=== PATIENT | male | born 1945 | race Caucasian/White ===

== ENCOUNTER 2021-02-06 23:52 | Emergency (ER) | payer BC ==
[~2021-02-06] VITALS: Ht 182.9 cm; Wt 113.6 kg
[2021-02-07] MEDS ORDERED: HYDROcodone/acetaminophen 5mg/325mg tablet PO ONE (00:05)
[2021-02-07] MEDS ORDERED: HYDR-3965 PO (00:24)
--- NOTE | 2021-02-07 01:00 | NUR ---
to bedside from lobby. updated on treatment/diagnostics performed. requested MRI, Dr. Hsieh notified of 's request and her concerns.
--- NOTE | 2021-02-07 01:10 | NUR ---
Discharge orders up. RN discussed discharge instructions with patient and . RN expressed concerns about patient safety and mobility. Patient stated earlier that he has a son who lives "up on [place]" who was planning to come over later today. RN encouraged patient and his to call son now for assistanced at home to transfer patient from car. Follow up Monday with PMD Dr. Wiseman urged. refusing to call family for assistance and states she will follow up with PMD but insists on hospital admission: "my neighbor fainted and was here for 3 days and there was nothing wrong with her". RN explained that MD has discharged patient for outpatient follow up and again encouraged utilizing family to assist them today at home. then requested to sign discharge paperwork and leave. Patient assisted to wheelchair and placed in clean sweatpants and socks by RN and lynn. Patient is taken out to car with by tech and RN and assisted into car. RN again encouraged calling family for assistance today; patient is amenable to calling his son.
[2021-02-07 01:59] VITALS: BP 136/89
[2021-02-09] MEDS ORDERED: SULF1TAB45 PO (01:25)
[2021-02-09] MEDS ORDERED: METO-384 PO (01:25)
[2021-02-09] MEDS ORDERED: ASPI-611 PO (01:25)
[2021-02-09] MEDS ORDERED: FLO0.4C PO (01:25)
[2021-02-09] MEDS ORDERED: SIMV-45 PO (01:25)
== END 2021-02-07 02:20 | disposition home or self-care (01) ==
LOC: ER 23:53
DX: M25.551 Pain in right hip (principal); R26.89 Other abnormalities of gait and mobility; I10 Essential (primary) hypertension; Z98.890 Other specified postprocedural states; Z79.899 Other long term (current) drug therapy; Z72.89 Other problems related to lifestyle; Z96.641 Presence of right artificial hip joint
CPT/HCPCS: 73502; 73552; 99284

== ENCOUNTER 2022-02-16 08:24 | Emergency (ER) | payer OTHER ==
[~2022-02-16] VITALS: Ht 185.4 cm; Wt 103.6 kg
[~2022-02-16 08:24] MED LIST: ASPI-611 PO; FLO0.4C PO; METO-384 PO; PANT40TA54 PO; SIMV-45 PO; SULF1TAB45 PO; folic acid tablet PO; thiamine tablet PO
[2022-02-16] MEDS ORDERED: LORazepam 2 mg/ml vial IV ONE (08:35)
[2022-02-16] MEDS ORDERED: normal saline 1000ML IV soln IVB ONE (08:35)
[2022-02-16] MEDS ORDERED: ondansetron/PF 4mg/2ml inj IV ONE (08:35)
[2022-02-16] MEDS ORDERED: thiamine 100mg/ml 2ml inj. IV ONE (08:35)
[2022-02-16] MEDS ORDERED: folic acid 1mg/0.2ml inj IV ONE (08:35)
[2022-02-16 09:11] LABS: BASOPHILS % (AUTO) 0.4 % (0-1); EOSINOPHILS % (AUTO) 0.7 % (0-6); HEMATOCRIT 45.6 % (42.0-52.0); HEMOGLOBIN 15.3 g/dl (14.0-17.9); LYMPHOCYTES # (AUTO) 0.7 X10'3 (1.1-4.8); LYMPHOCYTES % (AUTO) 15.4 % (21-51); MEAN CORPUSCULAR HGB CONC 33.5 g/dL (33.0-36.5); MEAN CORPUSCULAR VOLUME 110.5 FL (78-98); MONOCYTES # (AUTO) 0.6 X10'3 (0-0.9); MONOCYTES % (AUTO) 12.4 % (2-12); NEUTROPHILS # (AUTO) 3.5 X10'3 (1.8-7.7); NEUTROPHILS % (AUTO) 71.1 % (42-75); RED BLOOD COUNT 4.12 X10'6 (4.70-6.10); RED CELL DISTRIBUTION WIDTH 13.4 % (11.5-14.5); WHITE BLOOD COUNT 4.9 X10'3 (4.5-11.0)
[2022-02-16 09:21] LABS: PLATELET COUNT 49 X10'3 (140-440)
[2022-02-16] MEDS ORDERED: cloNIDine 0.1 mg tablet PO ONE (09:25)
[2022-02-16 09:38] LABS: ANION GAP 13 (8-16); BLOOD UREA NITROGEN 22 MG/DL (7-18); CHLORIDE 105 MMOL/L (99-107); CREATININE 0.97 MG/DL (0.60-1.10); GLUCOSE 118 MG/DL (70-104); POTASSIUM 3.9 MMOL/L (3.5-5.1); SODIUM 146 MMOL/L (135-145); TOTAL CARBON DIOXIDE 27.8 MMOL/L (24-32)
[2022-02-16 09:39] LABS: ALANINE AMINOTRANSFERASE 62 U/L (12-78); ALBUMIN 3.7 G/DL (3.4-5.0); ALBUMIN/GLOBULIN RATIO 1.1 (1.1-1.5); ALKALINE PHOSPHATASE 83 IU/L (46-116); ASPARTATE AMINO TRANSFERASE 125 U/L (10-37); BILIRUBIN,TOTAL 2.8 MG/DL (0.1-1.0); BUN/CREATININE RATIO 22.7 (5.4-32.0); CALCIUM 8.8 MG/DL (8.5-10.1); TOTAL PROTEIN 7.2 G/DL (6.4-8.2); eGFR 75 ML/MIN
[2022-02-16 09:41] LABS: LIPASE 156 U/L (73-393)
[2022-02-16 09:44] LABS: ETHANOL < 0.010 GM/DL (0.0-0.010)
[2022-02-16] MEDS: potassium CL 20mEq in D5-1/2NS 1,000 ML IV SCH ×2 (10:32→10:43)
[2022-02-16 11:13] LABS: CLARITY,URINE CLEAR (Clear); COLOR,URINE YELLOW (Yellow); GLUCOSE, URINE NEGATIVE (Neg); KETONES,URINE TRACE mg/dl (Neg); LEUKOCYTE ESTERASE ,URINE NEGATIVE (Neg); NITRITES, URINE NEGATIVE (Neg); OCCULT BLOOD,URINE NEGATIVE (Neg); PROTEIN,URINE NEGATIVE (Neg)
[2022-02-16 11:17] LABS: UA COLLECTION TYPE CLN CATCH MIDSTREAM
--- NOTE | 2022-02-16 11:40 | NUR ---
pt passed ambulation trial with walker. pt has own walker at home.
[2022-02-16 11:52] VITALS: BP 144/86
== END 2022-02-16 11:56 | disposition home or self-care (01) ==
LOC: ER 08:26
DX: E86.0 Dehydration (principal); R53.1 Weakness; F10.239 Alcohol dependence with withdrawal, unspecified; I10 Essential (primary) hypertension; Z72.89 Other problems related to lifestyle; Z88.5 Allergy status to narcotic agent; Z79.82 Long term (current) use of aspirin; Z79.2 Long term (current) use of antibiotics; Z79.899 Other long term (current) drug therapy; Y90.9 Presence of alcohol in blood, level not specified
CPT/HCPCS: 36415; 71045; 80053; 80320; 81003; 82140; 83690; 84484; 85025; 85610; 93005; 96361; 96374; 96375; 99285; J2060; J2405; J3411; J3480; J3490; J7030